=== PATIENT | female | born 1985 | race Two or more races ===

== ENCOUNTER → 2023-03-27 10:59 | Outpatient (CLI) | payer BC, SELFPAY ==
[2023-03-27 11:13] LABS: Basophils # 0.1 K/mm3 (0-0.2); Basophils % 0.6 % (0.1-2.0); Eosinophils # 0.2 K/mm3 (0.0-0.4); Hemoglobin 14.9 g/dL (12.2-16.2); Lymphocytes # 2.1 K/mm3 (0.7-4.5); Lymphocytes % 26.2 % (10-50); Mean Corpuscular HGB Conc 33.9 g/dL (31.8-35.4); Mean Corpuscular Hemoglobin 31.1 pg (27.0-31.2); Mean Corpuscular Volume 91.5 fl (81-99); Mean Platelet Volume 7.5 fl (7.4-10.4); Monocytes # 0.4 K/mm3 (0.1-1.0); Monocytes % 5.3 % (1.7-9.3); Neutrophils # 5.1 K/mm3 (1.8-7.8); Neutrophils % 64.9 % (37.0-80.0); Platelet Count 447 K/mm3 (142-424); Red Blood Count 4.81 M/mm3 (4.20-5.40); Red Cell Distribution Width 13.4 % (11.5-17.5); White Blood Count 7.9 K/mm3 (4.8-10.8)
[2023-03-27 12:56] LABS: Anion Gap 11.3 mEq/L (5-15); Blood Urea Nitrogen 11 mg/dl (7-17); Carbon Dioxide 30 mmol/L (22.0-30.0); Chloride 102 mmol/L (98-107); Estimated Glomerular Filt Rate 140 ml/min (>60); GFR (African American) 170 ML/MIN (>60); Glucose 87 mg/dl (74-100); Potassium 4.3 mmoL/L (3.5-5.1); Sodium 139 mmol/L (136-145)
== END ==
PROVIDERS: PCP Family Medicine; Visit Provider Surgery
DX: K64.9 Unspecified hemorrhoids (principal)
CPT/HCPCS: 36415; 80048; 85025

== ENCOUNTER 2023-03-29 08:42 | Day surgery (SDC) | payer BC, SELFPAY ==
[2023-03-26 09:56] VITALS: BMI 30.8
[2023-03-29] VITALS (8 sets, daily range): BP systolic 110–136; BP diastolic 71–91; PULSE 72–100; RESP 12–18; TEMP 36.2–37.1; O2SAT 94–100
[2023-03-29 09:36] LABS: HCG Qualitative, Serum Negative (Negative)
--- NOTE | 2023-03-29 11:43 | EXP.OP.NOTE ---
Date of procedure: 03/29/23 Pre-op Diagnosis:: Anal pain and bleeding Post-op Diagnosis:: Same Procedure performed:: Exam under anesthesia Surgeon:: Napoleon Vazquez MD APPRAISER TIMBER:: Jean Almanzar Anesthesia: LMA Estimated blood loss (mL): 15 Clinical Note:: Patient is a 37-year-old female who was essentially a self-referral for hemorrhoids. I had previously taken care of her for hernia many years ago at [facility]. She describes several month history of anal pain. No significant bleeding. She had been on topical hydrocortisone. She describes some radiation of pain towards the vaginal area. She has regular bowel movements. She was seen in the office and there appeared to be an anterior anal skin tag. Digital examination was quite uncomfortable and very limited with findings likely of anal stenosis and anal sphincter spasm. I had suspicion for possible fissure but this was difficult to discern on examination. Plan was made for exam under anesthesia for evaluation, assessment, and possible treatment if this was merely hemorrhoids. Operative findings:: She had quite prominent sentinel anterior anal skin tag. There was evidence of anal stenosis. 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 Operative note:: Patient was taken the operating room. She was positioned in supine position. Anesthesia was induced via LMA. She was positioned in lithotomy position. Perineum was prepped and draped in the standard surgical fashion in case hemorrhoidectomy was to be performed. Digital examination was performed. There was rather prominent sentinel anal skin tag anteriorly. Digital examination elicited mucousy discharge. [place] anoscope was inserted. There was noted to be anterior fissure slightly to the right of the midline. There were excoriated prolapsing hemorrhoids proximal to this which easily bled. Thorough examination was performed. Irrigation was performed of the anal canal. Local anesthetic was infiltrated into the sphincter muscle and submucosa at the site of the fissure. Gelfoam roll soaked in topical hemostatic was inserted into the anal canal. It appears as though the patient likely has complex anterior chronic fissure with external sentinel anal skin tag and internal prolapsing hemorrhoids which easily bleed. This is somewhat of a complex problem and given the unusual location of the fissure along with concomitant probable anal stenosis and internal hemorrhoids I likely will have her referred to colorectal surgery. In the meantime I will give her a trial of nifedipine ointment and topical lidocaine. Condition: stable Disposition: PACU Complications:: None immediately apparent
--- NOTE | 2023-03-29 11:48 | EXP.ANES.CKL ---
[facility] Disclaimer: The information contained in this section may have been updated after the patient was seen, as this information can be updated by other users. Medical History (Updated 03/29/23 @ 09:54 by Ana Paredes RN) Cataract History of COVID-19 No significant past medical history Family History Other No significant family history Social History (Updated 03/29/23 @ 09:54 by Ana Paredes RN) Smoking Status: Never smoker alcohol intake: never substance use type: denies use current occupational status: employed Travel in the last 8 weeks: None [facility] Anesthesia Checklist Patient Identification Patient Identification: Verbal (Name & ) Structural Data Admitted From: Home Planned Operative Procedure/s: eua Consent for Planned Operative Procedure(s) Verified: Yes NPO Status Verified Time NPO: 00:00 Additional verifications Anesthesia Reactions: No Hx Blood Transfusions: No Blood Transfusion Reaction: No Airway Assessment Mallampati Score:: Class I C-Spine Mobility Assessed: Yes TMJ Mobility Assessed: Yes Dentition: Good Dentition Neurological Assessment Level of Consciousness: Awake, Alert and Appropriate Anesthesia Plan Anesthesia Risk discussed: Yes Anesthesia Plan: Verified ASA Class: II Anesthesia Type: General
--- NOTE | 2023-03-29 11:49 | EXP.ANES.I ---
[facility] Anesthesia Record Part I Anesthesia Record I Intake, IV Amount: 1,500 Hydration: Adequate Estimated blood loss (mL): 0 Urine output (mL): 0 Blood Pressure: 126/87 SaO2: 95 Pulse Rate: 80 Airway Patency: Patent Respiratory Rate: 12 Temperature: 98 F Patient is:: Awake and Stable
--- NOTE | 2023-03-30 08:56 | EXP.ANES.II ---
[facility] Anesthesia Record Part II Anesthesia Record Part II Discharge Time: 12:15 Destination: Surgical Day Care (OP Surgery) PACU nurse assessment reviewed?: Yes Patient Condition:: Good Anesthesia Complications:: None Swallowing reflex intact?: Yes Airway Patency: Patent Cyanosis?: No Blood Pressure: 128/90 SaO2: 100 Respiratory Rate: 18 Pulse Rate: 77 Temperature: 97.2 F Mental Status: Alert & Oriented Pain level:: 0 Nausea and/or vomitting:: None Intake, IV Amount: 0 Hydration: Adequate
[2023-03-30 08:57] VITALS: BP 128/90; PULSE 77; RESP 18; TEMP 36.2; O2SAT 100
== END 2023-03-29 13:00 | disposition home or self-care (01) ==
PROVIDERS: PCP Family Medicine; Visit Provider Surgery
PROC: (CPT 45990; principal; 2023-03-29 10:00)
DX: K64.8 Other hemorrhoids (principal); K64.4 Residual hemorrhoidal skin tags; K60.2 Anal fissure, unspecified
CPT/HCPCS: 45990; 84703; 96374; J2405